=== PATIENT | female | born 1975 | race African-American/Black ===

== ENCOUNTER 2019-09-14 08:43 | Emergency (ER) | payer SELFPAY ==
[~2019-09-14] VITALS: Ht 175.3 cm; Wt 86.3 kg
--- NOTE | 2019-09-14 09:23 | PHYS DOC ---
Past History Past Medical History: Anemia, Anxiety Past Surgical History: Appendectomy Smoking: Cigarettes Alcohol Use: Occasionally Drug Use: None Adult General Chief Complaint Chief Complaint: CHEST PAIN [facility] HPI Patient is a 44-year-old female, smoker, who presents to the emergency department for evaluation. She states that for the past week or so, she has been having some discomfort in her mid chest, neck and back. She states the pain in her chest will come, be very sharp and intense for about a second, and then disappear. She reports pain in her upper neck as well. She states that she did not think much of it initially because she has had neck problems in the past, previously diagnosed on imaging. She denies any numbness or weakness, pleuritic pain, exertional pain, shortness of breath, dizziness or lightheadedness. She has not had any fevers or chills. There are no alleviating or exacerbating factors to her symptoms. However, certain upper body movements seem to worsen her pain. Palpation of the affected area does not seem to affect her symptoms. Review of Systems Review of Systems Constitutional: Denies fever or chills [] Eyes: Denies change in visual acuity, redness, or eye pain [] HENT: Denies nasal congestion or sore throat [] Respiratory: Denies cough or shortness of breath [] Cardiovascular: No additional information not addressed in HPI [] GI: Denies abdominal pain, nausea, vomiting, bloody stools or diarrhea [] : Denies dysuria or hematuria. LMP at the end of July. Reports history of heavy periods. Is slightly late on her menstrual cycle. [] Musculoskeletal: Denies back pain or joint pain [] Integument: Denies rash or skin lesions [] Neurologic: Denies headache, focal weakness or sensory changes [] Endocrine: Denies polyuria or polydipsia [] All other systems were reviewed and found to be within normal limits, except as documented in this note. Allergies Allergies Allergies Coded Allergies Type Severity Reaction Last Updated Verified No Known Drug Allergies 09/14/19 No Physical Exam Physical Exam PHYSICAL EXAM: CONSTITUTIONAL: Well developed, well nourished HEAD: normocephalic, atraumatic EENT: PERRL, EOMI. Conjunctivae normal color, sclerae non-icteric; moist mucous membranes. NECK: Supple, non-tender; no meningismus. LUNGS: Lungs CTA, breathing even and unlabored. Normal air movement. HEART: Regular rate and rhythm, no murmur CHEST: No deformity; non-tender ABDOMEN: The abdomen is soft, and non-tender, no masses or bruits. EXTREM: Normal ROM; no deformity, no calf tenderness. Normal pulses palpable in all extremities. There is no pedal edema. SKIN: No rash; no diaphoresis NEURO: Alert; normal speech and cognition; CN's grossly intact; strength grossly intact without focal deficit. BACK: No CVA TTP. Current Patient Data Vital Signs Vital Signs Date Time Temp Pulse Resp B/P (MAP) Pulse Ox O2 Delivery O2 Flow Rate FiO2 09/14/19 08:50 76 16 134/66 (88) 100 Room Air 09/14/19 08:45 97.7 Lab Results Laboratory Tests Test 09/14/19 09:00 09/14/19 09:40 White Blood Count 6.5 x10^3/uL Red Blood Count 4.37 x10^6/uL Hemoglobin 9.2 g/dL Hematocrit 30.0 % Mean Corpuscular Volume 69 fL Mean Corpuscular Hemoglobin 21 pg Mean Corpuscular Hemoglobin Concent 31 g/dL Red Cell Distribution Width 20.5 % Platelet Count 409 x10^3/uL Neutrophils (%) (Auto) 44 % Lymphocytes (%) (Auto) 42 % Monocytes (%) (Auto) 8 % Eosinophils (%) (Auto) 5 % Basophils (%) (Auto) 1 % Neutrophils # (Auto) 2.9 x10^3uL Lymphocytes # (Auto) 2.8 x10^3/uL Monocytes # (Auto) 0.5 x10^3/uL Eosinophils # (Auto) 0.3 x10^3/uL Basophils # (Auto) 0.1 x10^3/uL Platelet Estimate Pending D-Dimer (Daria) 0.75 mg/L Sodium Level 139 mmol/L Potassium Level 3.7 mmol/L Chloride Level 105 mmol/L Carbon Dioxide Level 26 mmol/L Anion Gap 8 Blood Urea Nitrogen 7 mg/dL Creatinine 0.7 mg/dL Estimated GFR (Cockcroft-Gault) 109.5 BUN/Creatinine Ratio 10 Glucose Level 87 mg/dL Calcium Level 8.3 mg/dL Total Bilirubin 0.3 mg/dL Aspartate Amino Transf (AST/SGOT) 19 U/L Alanine Aminotransferase (ALT/SGPT) 25 U/L Alkaline Phosphatase 56 U/L Troponin I Quantitative < 0.017 ng/mL EY-Mks-E-Type Natriuretic Peptide 48 pg/mL Total Protein 7.3 g/dL Albumin 3.5 g/dL Albumin/Globulin Ratio 0.9 Lipase 125 U/L Bedside Urine HCG, Qualitative hcg negative Current Medications Medications (Trade) Dose Ordered Sig/Zafar Route PRN Reason Start Time Stop Time Status Last Admin Dose Admin Aspirin (Children'S Aspirin) 324 mg 1X ONCE PO 09/14/19 09:30 09/14/19 09:31 DC 09/14/19 09:33 EKG EKG []Normal sinus rhythm with a normal rate, normal axis, normal intervals, there are no acute ischemic ST/T changes. Radiology/Procedures Radiology/Procedures PROCEDURE: CHEST PA & LATERAL EXAM: Chest, 2 views. HISTORY: Chest pain. COMPARISON: None. FINDINGS: 2 views of the chest are obtained. There is no infiltrate, pleural effusion or pneumothorax. The heart is normal in size. IMPRESSION: No acute pulmonary finding. [] PROCEDURE: CT ANGIOGRAPHY CHEST CT Angio chest 09/14/2019 9:56 AM Indication: Chest pain Technique: Multiple contiguous axial images were obtained through the chest after administration of intravenous iodinated contrast. Coronal, sagittal, and 3-D MIP reformations were created. Comparison: Chest radiograph, earlier today Findings: There is no filling defect within central pulmonary arteries or evidence of acute pulmonary embolism. Heart size is normal. No pericardial effusion is appreciated. No pathologically enlarged mediastinal lymph nodes are seen. . The thoracic aorta is grossly normal in course and contour. There is no pneumothorax or pleural effusion. No acute infiltrates are seen. . Multiple thin-walled cysts are seen throughout the bilateral lungs. In the upper lobes areas of cysts cyst formation. A tiny, all thin-walled cyst are slightly more prominent in the lower lobes, particularly on the left. No associated nodular or inflammatory changes identified. Patient reports to be a nonsmoker. There is a there are 2 small 3 mm noncalcified nodules along the major fissure, and small 3 mm noncalcified nodule along the minor fissure on the right. Findings most likely reflect small intrapulmonary lymph nodes, though attention on follow-up studies recommended. Limited visualization of the upper abdomen demonstrates no acute abnormality. No acute osseous abnormalities are appreciated. Impression: 1.No evidence of acute pulmonary embolism 2. Scattered thin-walled pulmonary cysts, slightly more prominent in the lower lobes. In a nonsmoking, female patient, differential considerations would include early changes of lymphangiomyomatosis. is in fact smoking history, centrilobular emphysema should be considered. Consider Follow-up high-resolution chest CT in 6 months to one year. 3. 3, approximately 3 mm pleural-based nodules on the right, which may represent intrapulmonary lymph nodes. Attention on follow-up exam recommended. Course & Med Decision Making Course & Med Decision Making Pertinent Labs and Imaging studies reviewed. (See chart for details) []11:15 AM: The patient's condition remained stable. I discussed test results with the patient, specifically the CT findings and the need for further outpatient follow-up, and return precautions in detail. She'll be given pulmonary follow-up information. Dragon Disclaimer Dragon Disclaimer This electronic medical record was generated, in whole or in part, using a voice recognition dictation system. Departure Departure: Impression: Primary Impression: Atypical chest pain Disposition: 01 HOME/RESIDENCE PRIOR TO ADM Condition: STABLE Patient Instructions: Chest Pain (Nonspecific), Musculoskeletal Pain, Smoking Cessation Additional Instructions: Ibuprofen 400-600 mg every 6 hours may help improve your symptoms. Applying a heating pad to the affected area may help improve your symptoms. Follow-up with Dr. Meraz, pulmonology, call [phone] to schedule an appointment. MARIA ISABEL ROONEY MD Sep 14, 2019 09:22
[2019-09-14] MEDS ORDERED: ASPIRIN 81 MG TAB.CHEW PO ONE (09:30)
[2019-09-14 09:31] LABS: BASO # 0.1 x10^3/uL (0.0-0.2); BASO % 1 % (0-3); EOS # 0.3 x10^3/uL (0.0-0.7); EOS % 5 % (0-3); HEMOGLOBIN 9.2 g/dL (12.0-15.5); LYMPH # 2.8 x10^3/uL (1.0-4.8); LYMPH % 42 % (24-48); MEAN CORPUSCULAR HEMOGLOBIN 21 pg (25-35); MEAN CORPUSCULAR HGB CONC 31 g/dL (31-37); MEAN CORPUSCULAR VOLUME 69 fL (79-100); MONO # 0.5 x10^3/uL (0.0-1.1); MONO % 8 % (0-9); NEUT # 2.9 x10^3uL (1.8-7.7); NEUT % 44 % (31-73); PLATELET COUNT 409 x10^3/uL (140-400); RED BLOOD COUNT 4.37 x10^6/uL (3.50-5.40); RED CELL DISTRIBUTION WIDTH 20.5 % (11.5-14.5); WHITE BLOOD COUNT 6.5 x10^3/uL (4.0-11.0)
--- NOTE | 2019-09-14 09:35 | RAD ---
EXAM: Chest, 2 views. HISTORY: Chest pain. COMPARISON: None. FINDINGS: 2 views of the chest are obtained. There is no infiltrate, pleural effusion or pneumothorax. The heart is normal in size. IMPRESSION: No acute pulmonary finding. Electronically signed by: Estephania White MD (09/14/2019 9:32 AM) [place] [id number]
[2019-09-14 09:45] LABS: ALBUMIN 3.5 g/dL (3.4-5.0); ALBUMIN/GLOBULIN RATIO 0.9 (1.0-1.7); CALCIUM 8.3 mg/dL (8.5-10.1); CREATININE 0.7 mg/dL (0.6-1.0); GFR 109.5; POTASSIUM 3.7 mmol/L (3.5-5.1); TOTAL BILIRUBIN 0.3 mg/dL (0.2-1.0); TOTAL PROTEIN 7.3 g/dL (6.4-8.2)
[2019-09-14 10:04] LABS: MICROCYTOSIS PRESENT; PLT ESTIMATE INCREASED (ADEQUATE)
[2019-09-14 10:06] LABS: ANISOCYTOSIS PRESENT; OVALOCYTES FEW
[2019-09-14 10:07] LABS: SCHISTOCYTES FEW; TARGET CELLS FEW
[2019-09-14 10:09] LABS: TEAR DROP CELLS FEW
[2019-09-14 10:11] LABS: BURR CELLS OCC; HYPOCHROMIA PRESENT
[2019-09-14] MEDS ORDERED: IOHEXOL 350 MG/ML 100 ML VIAL. IV ONE (10:15)
--- NOTE | 2019-09-14 11:05 | RAD ---
CT Angio chest 09/14/2019 9:56 AM Indication: Chest pain Technique: Multiple contiguous axial images were obtained through the chest after administration of intravenous iodinated contrast. Coronal, sagittal, and 3-D MIP reformations were created. Comparison: Chest radiograph, earlier today Findings: There is no filling defect within central pulmonary arteries or evidence of acute pulmonary embolism. Heart size is normal. No pericardial effusion is appreciated. No pathologically enlarged mediastinal lymph nodes are seen. . The thoracic aorta is grossly normal in course and contour. There is no pneumothorax or pleural effusion. No acute infiltrates are seen. . Multiple thin-walled cysts are seen throughout the bilateral lungs. In the upper lobes areas of cysts cyst formation. A tiny, all thin-walled cyst are slightly more prominent in the lower lobes, particularly on the left. No associated nodular or inflammatory changes identified. Patient reports to be a nonsmoker. There is a there are 2 small 3 mm noncalcified nodules along the major fissure, and small 3 mm noncalcified nodule along the minor fissure on the right. Findings most likely reflect small intrapulmonary lymph nodes, though attention on follow-up studies recommended. Limited visualization of the upper abdomen demonstrates no acute abnormality. No acute osseous abnormalities are appreciated. Impression: 1.No evidence of acute pulmonary embolism 2. Scattered thin-walled pulmonary cysts, slightly more prominent in the lower lobes. In a nonsmoking, female patient, differential considerations would include early changes of lymphangiomyomatosis. is in fact smoking history, centrilobular emphysema should be considered. Consider Follow-up high-resolution chest CT in 6 months to one year. 3. 3, approximately 3 mm pleural-based nodules on the right, which may represent intrapulmonary lymph nodes. Attention on follow-up exam recommended. CT DOSING PQRS STATEMENT: One or more of the following individualized dose reduction techniques were utilized for this examination: 1. Automated exposure control 2. Adjustment of the mA and/or kV according to patient size 3. Use of iterative reconstruction technique Electronically signed by: Kee Coyle MD (09/14/2019 11:03 AM) [facility]
[2019-09-14 11:27] VITALS: BP 113/69
--- NOTE | 2019-09-15 06:09 | EKG ---
[address] [address] Test Date: 2019-09-14 Test Time: 09:06:50 Pat Name: RONNY GERMAN Department: Room: Gender: F Analyst Programmer: BEV : 1975 Requested By: MARIA ISABEL ROONEY Order Number: [id number] Reading MD: Measurements Intervals [place] Rate: 71 P: 0 IL: 138 QRS: 22 QRSD: 70 T: 27 QT: 378 QTc: 411 Interpretive Statements SINUS RHYTHM OTHERWISE NORMAL ECG RI6.01 No previous ECG available for comparison
== END 2019-09-14 11:29 | disposition home or self-care (01) ==
LOC: ER 08:43
DX: R07.89 Other chest pain (principal); M54.2 Cervicalgia; M54.6 Pain in thoracic spine; F17.210 Nicotine dependence, cigarettes, uncomplicated; F41.9 Anxiety disorder, unspecified; Z86.2 Personal history of diseases of the blood and blood-forming organs and certain disorders involving the immune mechanism
CPT/HCPCS: 36415; 71046; 71275; 80053; 81025; 83690; 83880; 84484; 85025; 85379; 93005; 99285; Q9967

== ENCOUNTER 2020-11-26 12:22 | Emergency (ER) | payer OTHER ==
[~2020-11-26] VITALS: Ht 175.3 cm; Wt 82.4 kg
--- NOTE | 2020-11-26 12:42 | PHYS DOC ---
Past History Past Medical History: Anemia, Anxiety Past Surgical History: Appendectomy Smoking: Cigarettes Alcohol Use: Occasionally Drug Use: None Adult General Chief Complaint Chief Complaint: ANKLE PROBLEM HPI HPI Patient is a 45-year-old female who presents to the ED today complaining of 10 out of 10 left lateral ankle pain, symptoms began last night after injury at work. Patient states her left ankle got caught between a pallet and nail. She works for [employer] since. States pain is worse on weightbearing. Denies anything specifically relieving the pain. Describes the pain as sharp and intermittent. Review of Systems Review of Systems Constitutional: Denies fever or chills []] Musculoskeletal: Reports left ankle pain. Denies back pain Integument: Denies rash or skin lesions [] Neurologic: Denies headache, focal weakness or sensory changes [] All other systems were reviewed and found to be within normal limits, except as documented in this note. Allergies Allergies Allergies Coded Allergies Type Severity Reaction Last Updated Verified cyclobenzaprine Allergy Unknown 11/26/20 Yes Physical Exam Physical Exam Constitutional: Well developed, well nourished, no acute distress, non-toxic appearance. [] Skin: Warm, dry, no erythema, no rash. [] Back: No tenderness, no CVA tenderness. [] Extremities: Left ankle with no obvious deformity. Trace amount soft tissue swelling noted on the left lateral ankle. Full range of motion to the left ankle, foot and toes. +2 left pedal pulse. Cap refill less than 2 seconds in toes. Neurologic: Alert and oriented X 3, normal motor function, normal sensory function, no focal deficits noted. [] Psychologic: Affect normal, judgement normal, mood normal. [] EKG EKG [] Radiology/Procedures Radiology/Procedures []PROCEDURE: ANKLE LEFT 3V XR EXAM OF ANKLE_LEFT 3V History: Reason: Injury to left ankle, pain / Spl. Instructions: / History: Technique: 3 views left ankle. Comparison: None. Findings: Normal alignment. No fracture. Symmetric ankle mortise. Soft tissues unr emarkable. Tiny plantar calcaneal spur. Impression: 1. No acute osseous abnormality. Electronically signed by: Humble Nunez DO (11/26/2020 12:54 PM) [facility] DICTATED AND SIGNED BY: HUMBLE NUNEZ DO DATE: 11/26/20 [id number] CC: EMERGENCY,DEPARTMENT; SUSY DAILEY MD; DIRK DELANEY IDA ~MTH0 0 Heart Score Risk Factors: Risk Factors: DM, Current or recent (<one month) smoker, HTN, HLP, family history of CAD, obesity. Risk Scores: Risk Factors: DM, Current or recent (<one month) smoker, HTN, HLP, family history of CAD, obesity. Course & Med Decision Making Course & Med Decision Making Pertinent Labs and Imaging studies reviewed. (See chart for details) This is a 45-year-old female patient presented to the ED today complaining of left ankle pain, symptoms began yesterday after work injury. Left ankle x-rays interpreted by radiologist were negative for any acute findings. Geremias bandage applied to the left ankle by the ED nurse, neurovascular exam is intact. Ice elevation encouraged. OTC pain relievers. Follow-up with orthopedic doctor as needed Dragon Disclaimer Dragon Disclaimer This electronic medical record was generated, in whole or in part, using a voice recognition dictation system. Departure Departure: Impression: Primary Impression: Left ankle sprain Disposition: 01 DC HOME SELF CARE/HOMELESS Condition: STABLE Referrals: PCPGENA (PCP) CT TARANGO MD follow up in 1-2 weeks Patient Instructions: Ankle Sprain, Hpre-[id number] Additional Instructions: You were seen for left ankle injury, your left ankle x-rays are negative for any acute findings. Wear the Geremias bandage provided as tolerated. Try to ice and elevate the extremity. You can take [id number] pain relievers as needed. Follow-up with the provided orthopedic doctor in 1 week if pain persist Problem Qualifiers Primary Impression: Left ankle sprain Encounter type: initial encounter Involved ligament of ankle: unspecified ligament Qualified Codes: S93.402A - Sprain of unspecified ligament of left ankle, initial encounter DIRK DELANEY IDA Nov 26, 2020 12:42
--- NOTE | 2020-11-26 12:57 | RAD ---
XR EXAM OF ANKLE_LEFT 3V History: Reason: Injury to left ankle, pain / Spl. Instructions: / History: Technique: 3 views left ankle. Comparison: None. Findings: Normal alignment. No fracture. Symmetric ankle mortise. Soft tissues unremarkable. Tiny plantar calca bryant spur. Impression: 1. No acute osseous abnormality. Electronically signed by: Humble Nunez DO (11/26/2020 12:54 PM) [facility]
== END 2020-11-26 13:20 | disposition home or self-care (01) ==
LOC: ER 12:22
DX: S93.402A Sprain of unspecified ligament of left ankle, initial encounter (principal); W23.0XXA Caught, crushed, jammed, or pinched between moving objects, initial encounter; Y93.89 Activity, other specified; Y92.89 Other specified places as the place of occurrence of the external cause; Y99.8 Other external cause status
CPT/HCPCS: 73610; 99283-25

== ENCOUNTER 2021-01-27 15:15 | Emergency (ER) | payer OTHER ==
[~2021-01-27] VITALS: Ht 175.3 cm; Wt 82.4 kg
[2021-01-27 15:28] VITALS: BP 125/72
[2021-01-27] MEDS ORDERED: IBUP800T19 PO (16:27)
--- NOTE | 2021-01-27 16:28 | PHYS DOC ---
Past History Past Medical History: No Pertinent History, Anemia, Anxiety Past Surgical History: Appendectomy Smoking: Cigarettes Alcohol Use: None Drug Use: None General Adult EDM: Chief Complaint: LOWEREXTREMITY INJURY HPI: HPI: Patient is a 45-year-old female presents with left ankle pain after an injury at work. Patient's been following work comp for chronic pain. Patient states "the pain was just worse today". Patient states that she was scheduled to have an MRI completed through work comp and just waiting on appointment. Patient denies health history. Denies taking anything at home for the pain today. Patient normally takes ibuprofen and wears a boot. Review of Systems: Review of Systems: Constitutional: Denies fever or chills Eyes: Denies change in visual acuity HENT: Denies nasal congestion or sore throat Respiratory: Denies cough or shortness of breath Cardiovascular: Denies chest pain or edema GI: Denies abdominal pain, nausea, vomiting, bloody stools or diarrhea : Denies dysuria Musculoskeletal: Reports back pain and left foot pain Integument: Denies rash Neurologic: Denies headache, focal weakness or sensory changes Endocrine: Denies polyuria or polydipsia Lymphatic: Denies swollen glands Psychiatric: Denies depression or anxiety Allergies: Allergies: Allergies Coded Allergies Type Severity Reaction Last Updated Verified cyclobenzaprine Allergy Unknown 11/26/20 Yes Physical Exam: PE: Constitutional: Well developed, well nourished, no acute distress, non-toxic appearance. [] HENT: Normocephalic, atraumatic, bilateral external ears normal, oropharynx moist, no oral exudates, nose normal. [] Eyes: PERRLA, EOMI, conjunctiva normal, no discharge. [] Neck: Normal range of motion, no tenderness, supple, no stridor. [] Cardiovascular:Heart rate regular rhythm, no murmur [] Lungs & Thorax: Bilateral breath sounds clear to auscultation [] Abdomen: Bowel sounds normal, soft, no tenderness, no masses, no pulsatile masses. [] Skin: Warm, dry, no erythema, no rash. [] Back: No tenderness, no CVA tenderness. [] Extremities: Left foot tenderness, no cyanosis, no clubbing, ROM intact, no edema. [] Neurologic: Alert and oriented X 3, normal motor function, normal sensory function, no focal deficits noted. [] Psychologic: Affect normal, judgement normal, mood normal. [] Current Patient Data: Vital Signs: Vital Signs Date Time Temp Pulse Resp B/P (MAP) Pulse Ox O2 Delivery O2 Flow Rate FiO2 01/27/21 15:28 99.2 81 18 125/72 (89) 99 EKG: EKG: [] Radiology/Procedures: Radiology/Procedures: [] Heart Score: C/O Chest Pain: No Risk Factors: Risk Factors: DM, Current or recent (<one month) smoker, HTN, HLP, family history of CAD, obesity. Risk Scores: Score 0 - 3: 2.5% MACE over next 6 weeks - Discharge Home Score 4 - 6: 20.3% MACE over next 6 weeks - Admit for Clinical Observation Score 7 - 10: 72.7% MACE over next 6 weeks - Early Invasive Strategies Course & Med Decision Making: Course & Med Decision Making Pertinent Labs and Imaging studies reviewed. (See chart for details) [] Patient is being seen for chronic left foot pain. Patient is currently being treated with her comp and waiting for an MRI. Patient states that x-ray of ankle was negative for any acute fractures. Patient states "the pain was little bit worse today". Patient takes ibuprofen and wears boot at home for discomfort. Patient given IM Toradol injection. Patient sent home with prescription for 600 mg ibuprofen. Patient reports that she is out of ibuprofen at home. Patient denies any new injury. Patient states that she is okay with this plan and thankful for treatment. Dragon Disclaimer: Dragon Disclaimer: This electronic medical record was generated, in whole or in part, using a voice recognition dictation system. Departure Departure: Impression: Primary Impression: Left ankle pain Qualified Codes: M25.572 - Pain in left ankle and joints of left foot; G89.29 - Other chronic pain Disposition: 01 HOME / SELF CARE / HOMELESS Referrals: SUSY DAILEY MD (PCP) Patient Instructions: Ankle Pain Additional Instructions: You are seen in the emergency room for left ankle pain. You denied any new injury to the area. Toradol injection was given and obesity you home with prescription for 600 mg ibuprofen. Please return emergency room with worsening symptoms or concerns. EMERGENCY DEPARTMENT GENERAL DISCHARGE INSTRUCTIONS Thank you for coming to [facility] (ED) today and trusting us with you care. We trust that you had a positivie experience in our Emergency Department. If you wish to speak to the department management, you may call the director at [phone]. YOUR FOLLOW UP INSTRUCTIONS ARE FOLLOWS: 1. Do you have a private Doctor? If you do not have a private doctor, please ask for a resource list of physicians or clinics that may be able to assist you with follow up care. 2. The Emergency Physician has interpreted your x-rays. The X-Ray specialist will also review them. If there is a change in the findings, you will be notified in 48 hours when at all possible. 3. A lab test or culture has been done, your results will be reviewed and you will be notified if you need a change in treatment. ADDITIONAL INSTRUCTIONS AND INFORMATION: 1. Your care today has been supervised by a physician who is specially trained in emergency care. Many problems require more than one evaluation for a complete diagnosis and treatment. We recommend that you schedule your follow up appointment as recommended to ensure complete treatment of you illness or injury. If you are unable to obtain follow up care and continue to have a problem, or if your condition worsens, we recommend that you return to the ED. 2. We are not able to safely determine your condition over the phone nor are we able to give sound medical advice over the phone. For these safety reasons, if you call for medical advice we will ask you to come to the ED for further evaluation. 3. If you have any questions regarding these discharge instructions please call the ED at [phone]. SAFETY INFORMATION: In the interest of safety, wellness, and injury prevention; we encourage you to wear your sealbelt, if you smoke; quite smoking, and we encourage family to use a protective helmet for bicycling and other sporting events that present an increased risk for head injury. IF YOUR SYMPTOMS WORSEN OR NEW SYMPTOMS DEVELOP, OR YOU HAVE CONCERNS ABOUT YOUR CONDITION; OR IF YOUR CONDITION WORSENS WHILE YOU ARE WAITING FOR YOUR FOLLOW UP APPOINTMENT; EITHER CONTACT YOUR PRIMARY CARE DOCTOR, THE PHYSICIAN WHOSE NAME AND NUMBER YOU WERE GIVEN, OR RETURN TO THE ED IMMEDIATELY. Scripts Ibuprofen (IBUPROFEN) 200 Mg Tablet 600 MG PO QIDPRN PRN for PAIN, #15 TAB Prov: ARTIE BOWSER APRN 01/27/21 ARTIE BOWSER APRN Jan 27, 2021 16:28
[2021-01-27] MEDS ORDERED: KETOROLAC 15 MG/ML VIAL. IM ONE (16:30)
[2021-01-27] MEDS ORDERED: IBUP-1673 PO (16:32)
== END 2021-01-27 16:37 | disposition home or self-care (01) ==
LOC: ER 15:15
DX: M25.572 Pain in left ankle and joints of left foot (principal); G89.29 Other chronic pain; F17.210 Nicotine dependence, cigarettes, uncomplicated; Z88.1 Allergy status to other antibiotic agents
CPT/HCPCS: 96372; 99283

== ENCOUNTER 2021-03-28 14:40 | Emergency (ER) | payer OTHER ==
[~2021-03-28] VITALS: Ht 175.3 cm; Wt 84.6 kg
[~2021-03-28 14:40] MED LIST: IBUP-1673 PO; IBUP800T19 PO
[2021-03-28] MEDS ORDERED: KETOROLAC 60 MG/2 ML VIAL. IM ONE (15:15)
--- NOTE | 2021-03-28 15:33 | PHYS DOC ---
Past History Past Medical History: No Pertinent History, Anemia, Anxiety (AVERY ABDUL APRN) Past Surgical History: Appendectomy (AVERY ABDUL APRN) Smoking: Cigarettes Alcohol Use: None Drug Use: None (AVERY ABDUL APRN) Adult General Chief Complaint Chief Complaint: ANKLE PROBLEM HPI HPI Patient is a 46-year-old female who presents to the emergency department with a chief complaint of Achilles tendinitis pain today. 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 Patient reports she has been following up with her work comp physician and personalization specialist as directed, reports she was wearing a cam boot, had an MRI to evaluate her left Achilles tendon on January 28, follow-up appointment was February 27 with her orthopedist who told her she no longer needed her cam boot and recommended a compression garment and return to work. Patient reports her next appointment with her personalization specialist is April 10. Patient reports that the orthopedic surgeon did not really look at her or examine her Achilles on the left. Patient states that while she was at work today her Achilles tendon started aching again and rated a 10 out of 10 pain. Patient states since he has been here in the emergency department her pain is decreased down to an 8 out of 10. Patient reports her last menstrual cycle was on March 12 with normal duration of flow. Patient is requesting a work excuse. Patient reports allergy to Flexeril. Denies taking home prescription medications, takes [id number] Tylenol and/or Motrin for aches and pains. States that she took 2 500 mg Tylenols at 11 AM today. Patient denies any other physical complaints or physical concerns. (AVERY ABDUL APRN) Review of Systems Review of Systems 14 body systems of review of systems have been reviewed. See HPI for pertinent positives and negative responses, otherwise all other systems are negative, nonpertinent or noncontributory. (AVERY ABDUL APRN) Current Medications Current Medications Current Medications Medications (Trade) Dose Ordered Sig/Zafar Start Time Stop Time Status Last Admin Dose Admin Ketorolac Tromethamine (Toradol Im) 60 mg 1X ONCE 03/28/21 15:15 03/28/21 15:16 DC 03/28/21 15:15 60 MG (AVERY ABDUL APRN) Allergies Allergies Allergies Coded Allergies Type Severity Reaction Last Updated Verified cyclobenzaprine Allergy Unknown Swelling 03/28/21 Yes (AVERY ABDUL APRN) Physical Exam Physical Exam Constitutional: Well developed, well nourished, no acute distress, non-toxic appearance. 46-year-old female no apparent distress. HENT: Normocephalic, atraumatic. Eyes: Conjunctive normal, no discharge. Neck: Normal range of motion. Cardiovascular: No cyanosis appreciated, distal cap refill less than 2 seconds. Lungs & Thorax: Patient is in no respiratory distress, no audible adventitious lung sounds appreciated. Skin: Warm, dry, no erythema, no rash. Extremities: No tenderness, no cyanosis, no clubbing, ROM intact, no edema. Full AROM/PROM of left ankle. Negative Zimmer's test. There is no erythema or swelling appreciated to the Achilles tendon.there is pain and tenderness along Achilles tendon with thickening at insertion to calcaneus, and pain on forced dorsiflexion. Neurologic: Alert and oriented X 3, normal motor function, normal sensory function, no focal deficits noted. Psychologic: Affect normal, judgement normal, mood normal. (AVERY ABDUL APRN) Current Patient Data Vital Signs Vital Signs Date Time Temp Pulse Resp B/P (MAP) Pulse Ox O2 Delivery O2 Flow Rate FiO2 03/28/21 14:40 97.7 79 18 142/46 (78) 100 Room Air (AVERY ABDUL APRN) EKG EKG [] (AVERY ABDUL APRN) Radiology/Procedures Radiology/Procedures [] (AVERY ABDLU APRN) Heart Score C/O Chest Pain: No Risk Factors: Risk Factors: DM, Current or recent (<one month) smoker, HTN, HLP, family history of CAD, obesity. Risk Scores: Risk Factors: DM, Current or recent (<one month) smoker, HTN, HLP, family histo ry of CAD, obesity. (AVERY ABDUL APRN) Course & Med Decision Making Course & Med Decision Making Pertinent Labs and Imaging studies reviewed. (See chart for details) 46-year-old female, vital signs reviewed, presents emergency department complaining of Achilles tendinitis pain that started today while she was at work. Patient denied any sudden snap or knifelike pain to the posterior calf, there is no ecchymosis or swelling or palpable defect of the posterior tendon, there is no decreased plantarflexion strength. The patient's physical examination was consistent with Achilles tendinitis. We will give 60 mg IM Toradol for complaint of 8 out of 10 pain. After period of time, the patient reevaluated, patient states that her pain is much better now stating that it is about a 3 or 4. Discussed with patient RICE therapy, NSAID therapy, continue with recommendations by her personalization specialist and work comp physicians. Patient gave verbal understanding of discharge home instructions, RICE therapy, home NSAID use, follow-up with work comp and personalization specialist, return to ER precautions or concerns, patient was discharged home without incident. (AVERY ABDUL APRN) Dragon Disclaimer Dragon Disclaimer This electronic medical record was generated, in whole or in part, using a voice recognition dictation system. (AVERY ABDUL APRN) Departure Departure: Impression: Primary Impression: Achilles tendon pain Disposition: HOME / SELF CARE / HOMELESS Condition: GOOD Referrals: SUSY DAILEY MD (PCP) Patient Instructions: RICE - Routine Care for Injuries Additional Instructions: You were seen today in the emergency department for pain to your Achilles tendon from an old crush injury that you are following up with an personalization specialist and your work comp physician. You were given 60 mg of intramuscular Toradol today for your pain. A Geremias wrap was applied for comfort and stability. Please use RICE therapy as we discussed. Keep your appointments with your work comp and personalization specialist coming up soon. Please return to the emergency department for worsening symptoms or other concerns, I am giving you a work excuse as you requested. EMERGENCY DEPARTMENT GENERAL DISCHARGE INSTRUCTIONS Thank you for coming to [facility] (ED) today and trusting us with you care. We trust that you had a positivie experience in our Emergency Department. If you wish to speak to the department management, you may call the director at [phone]. YOUR FOLLOW UP INSTRUCTIONS ARE FOLLOWS: 1. Do you have a private Doctor? If you do not have a private doctor, please ask for a resource list of physicians or clinics that may be able to assist you with follow up care. 2. The Emergency Physician has interpreted your x-rays. The X-Ray specialist will also review them. If there is a change in the findings, you will be notified in 48 hours when at all possible. 3. A lab test or culture has been done, your results will be reviewed and you will be notified if you need a change in treatment. ADDITIONAL INSTRUCTIONS AND INFORMATION: 1. Your care today has been supervised by a physician who is specially trained in emergency care. Many problems require more than one evaluation for a complete diagnosis and treatment. We recommend that you schedule your follow up appointment as recommended to ensure complete treatment of you illness or injury. If you are unable to obtain follow up care and continue to have a problem, or if your condition worsens, we recommend that you return to the ED. 2. We are not able to safely determine your condition over the phone nor are we able to give sound medical advice over the phone. For these safety reasons, if you call for medical advice we will ask you to come to the ED for further evaluation. 3. If you have any questions regarding these discharge instructions please call the ED at [phone]. SAFETY INFORMATION: In the interest of safety, wellness, and injury prevention; we encourage you to wear your sealbelt, if you smoke; quite smoking, and we encourage family to use a protective helmet for bicycling and other sporting events that present an increased risk for head injury. IF YOUR SYMPTOMS WORSEN OR NEW SYMPTOMS DEVELOP, OR YOU HAVE CONCERNS ABOUT YOUR CONDITION; OR IF YOUR CONDITION WORSENS WHILE YOU ARE WAITING FOR YOUR FOLLOW UP APPOINTMENT; EITHER CONTACT YOUR PRIMARY CARE DOCTOR, THE PHYSICIAN WHOSE NAME AND NUMBER YOU WERE GIVEN, OR RETURN TO THE ED IMMEDIATELY. Attending Signature Attending Signature I have reviewed the PA/GLUER MACHINE OPERATOR's note and plan of care. I was available for consulta tion as needed during the patient's visit in the emergency department. I agree with the clinical impression, plan, and disposition. (AVERY HASSAN DO) AVERY ABDUL APRN Mar 28, 2021 15:33 AVERY HASSAN DO Mar 28, 2021 19:36
[2021-03-28 15:41] VITALS: BP 114/70
== END 2021-03-28 15:41 | disposition home or self-care (01) ==
LOC: ER 14:40
DX: M76.62 Achilles tendinitis, left leg (principal); F41.9 Anxiety disorder, unspecified; F17.210 Nicotine dependence, cigarettes, uncomplicated; Z86.2 Personal history of diseases of the blood and blood-forming organs and certain disorders involving the immune mechanism; Z88.8 Allergy status to other drugs, medicaments and biological substances
CPT/HCPCS: 96372; 99283; J1885

== ENCOUNTER 2021-04-30 10:45 | Emergency (ER) | payer OTHER ==
[~2021-04-30] VITALS: Ht 175.3 cm; Wt 84.6 kg
[2021-04-30 11:00] VITALS: BP 129/69
[2021-04-30] MEDS ORDERED: KETOROLAC 60 MG/2 ML VIAL. IM ONE (11:15)
--- NOTE | 2021-04-30 11:21 | PHYS DOC ---
Past History Past Medical History: No Pertinent History, Anemia, Anxiety Past Surgical History: Appendectomy Smoking: Cigarettes Alcohol Use: None Drug Use: None General Adult EDM: Chief Complaint: PAIN CONTROL HPI: HPI: 46-year-old female presents with left ankle pain. Patient has a Worker's Comp. injury from a couple of months ago that accept on occasion. For the last 2 days she has had increased stiffness and pain. It will sometimes spasm in her Achilles region and make her feel like she is in a fall. She denies any new falls or injuries. She is requesting a Toradol shot since her primary physician is closed today. She has no other complaints at this time. Review of Systems: Review of Systems: Constitutional: Denies fever or chills Eyes: Denies change in visual acuity HENT: Denies nasal congestion or sore throat Respiratory: Denies cough or shortness of breath Cardiovascular: Denies chest pain or edema GI: Denies abdominal pain, nausea, vomiting, bloody stools or diarrhea : Denies dysuria Musculoskeletal: Left ankle pain Integument: Denies rash Neurologic: Denies headache, focal weakness or sensory changes Endocrine: Denies polyuria or polydipsia Lymphatic: Denies swollen glands Psychiatric: Denies depression or anxiety Current Medications: Current Meds: Current Medications Medications (Trade) Dose Ordered Sig/Zafar Start Time Stop Time Status Last Admin Dose Admin Ketorolac Tromethamine (Toradol Im) 60 mg 1X ONCE 04/30/21 11:15 04/30/21 11:16 DC Allergies: Allergies: Allergies Coded Allergies Type Severity Reaction Last Updated Verified cyclobenzaprine Allergy Unknown Swelling 03/28/21 Yes Physical Exam: PE: Constitutional: Well developed, well nourished, no acute distress, non-toxic appearance. [] HENT: Normocephalic, atraumatic, bilateral external ears normal, oropharynx moist, no oral exudates, nose normal. [] Eyes: PERRLA, EOMI, conjunctiva normal, no discharge. [] Neck: Normal range of motion, no tenderness, supple, no stridor. [] Cardiovascular:Heart rate regular rhythm, no murmur [] Lungs & Thorax: Bilateral breath sounds clear to auscultation [] Abdomen: Bowel sounds normal, soft, no tenderness, no masses, no pulsatile masses. [] Skin: Warm, dry, no erythema, no rash. [] Back: No tenderness, no CVA tenderness. [] Extremities: Left ankle in walking boot. No obvious deformity. [] Neurologic: Alert and oriented X 3, normal motor function, normal sensory function, no focal deficits noted. [] Psychologic: Affect normal, judgement normal, mood normal. [] Current Patient Data: Vital Signs: Vital Signs Date Time Temp Pulse Resp B/P (MAP) Pulse Ox O2 Delivery O2 Flow Rate FiO2 04/30/21 11:00 98.2 89 16 129/69 100 Room Air EKG: EKG: [] Radiology/Procedures: Radiology/Procedures: [] Heart Score: C/O Chest Pain: N/A Risk Factors: Risk Factors: DM, Current or recent (<one month) smoker, HTN, HLP, family history of CAD, obesity. Risk Scores: Score 0 - 3: 2.5% MACE over next 6 weeks - Discharge Home Score 4 - 6: 20.3% MACE over next 6 weeks - Admit for Clinical Observation Score 7 - 10: 72.7% MACE over next 6 weeks - Early Invasive Strategies Course & Med Decision Making: Course & Med Decision Making Pertinent Labs and Imaging studies reviewed. (See chart for details) We have given the patient a Toradol shot and a note for work. She is stable for discharge at this time. [] Dragon Disclaimer: Jerilyn Disclaimer: This electronic medical record was generated, in whole or in part, using a voice recognition dictation system. Departure Departure: Impression: Primary Impression: Achilles tendon pain Disposition: HOME / SELF CARE / HOMELESS Condition: STABLE Referrals: SUSY DAILEY MD (PCP) Patient Instructions: Ankle Pain JUSTO MERCER DO Apr 30, 2021 11:21
== END 2021-04-30 11:29 | disposition home or self-care (01) ==
LOC: ER 10:45
DX: M76.62 Achilles tendinitis, left leg (principal); F41.9 Anxiety disorder, unspecified; F17.210 Nicotine dependence, cigarettes, uncomplicated; Z86.2 Personal history of diseases of the blood and blood-forming organs and certain disorders involving the immune mechanism; Z88.8 Allergy status to other drugs, medicaments and biological substances
CPT/HCPCS: 96372; 99283; J1885

== ENCOUNTER 2021-06-12 11:50 | Emergency (ER) | payer OTHER ==
[~2021-06-12] VITALS: Ht 175.3 cm; Wt 84.6 kg
[2021-06-12 12:29] VITALS: BP 138/79
== END 2021-06-12 13:50 | disposition left against medical advice (07) ==
LOC: ER 11:50
DX: M25.572 Pain in left ankle and joints of left foot (principal); Z53.21 Procedure and treatment not carried out due to patient leaving prior to being seen by health care provider

== ENCOUNTER 2021-12-01 18:11 | Emergency (ER) | payer OTHER ==
[~2021-12-01] VITALS: Ht 175.3 cm; Wt 84.6 kg
--- NOTE | 2021-12-01 18:35 | PHYS DOC ---
Past History Past Medical History: No Pertinent History, Anemia, Anxiety Past Surgical History: Appendectomy Smoking: Cigarettes Alcohol Use: None Drug Use: None General Adult HPI: HPI: ".. I ve been on a peroid since . It will not stop... " " I ve been anemic before.. and I take Iron .. I evern had to have Iron transfusion before... I have not been able to get in and see my doctor yet..." Patient is a 46 year old female who presents with vaginal bleeding and anemia. Pt. states bleeding is as much as peroid. Pt. has hx of chlamydia when she was a teenager. Has had 2 lifetime sex partners. Patient does have a history of prior episodes of dysfunctional uterine bleeding, anemia and anxiety. Patien t had abdomen surgeries of appendectomy. No recent travel. No sick ill contacts. No use immunosuppression. Patient has not gotten COVID vaccination, flu vaccination, Pneumovax,. Patient did get the COVID infection and 2020. Pt. follows with Dr. Brothers. Review of Systems: Review of Systems: Constitutional: Denies fever or chills Eyes: Denies change in visual acuity HENT: Denies nasal congestion or sore throat Respiratory: Denies cough or shortness of breath Cardiovascular: Denies chest pain or edema GI: Denies abdominal pain, nausea, vomiting, bloody stools or diarrhea. Complains of dysfunctional uterine bleeding : Denies dysuria Musculoskeletal: Denies back pain or joint pain Integument: Denies rash Neurologic: Denies headache, focal weakness or sensory changes Endocrine: Denies polyuria or polydipsia Lymphatic: Denies swollen glands Psychiatric: Denies depression or anxiety Family History: Family History: Noncontributory Current Medications: Current Meds: See nursing for home meds Allergies: Allergies: Allergies Coded Allergies Type Severity Reaction Last Updated Verified cyclobenzaprine Allergy Unknown Swelling 03/28/21 Yes Physical Exam: PE: Constitutional: Well developed, well nourished, no acute distress, non-toxic appearance. [] HENT: Normocephalic, atraumatic, bilateral external ears normal, oropharynx moist, no oral exudates, nose normal. [] Eyes: PERRLA, EOMI, conjunctiva pale, no discharge. [] Neck: Normal range of motion, no tenderness, supple, no stridor. [] Cardiovascular:Heart rate regular rhythm, no murmur [] Lungs & Thorax: Bilateral breath sounds clear to auscultation [] Abdomen: Bowel sounds normal, soft, no tenderness, no masses, no pulsatile masses. [] No gross cervical lesion appreciated but did have active bleeding. Os appear to be closed. Skin: Warm, dry, no erythema, no rash. Pale. Back: No tenderness, no CVA tenderness. [] Extremities: No tenderness, no cyanosis, no clubbing, ROM intact, no edema. [] Neurologic: Alert and oriented X 3, normal motor function, normal sensory function, no focal deficits noted. [] Psychologic: Affect anxious, judgement normal, mood normal. [] EKG: EKG: [] Radiology/Procedures: Radiology/Procedures: [][place] [address] IMAGING REPORT Signed PATIENT: RONNY GERMAN ACCOUNT: [id number] : 1975 LOCATION: ER AGE: 46 SEX: F EXAM STATUS: REG ER ORD. PHYSICIAN: HADLEY BUENO MD REASON: dysfunctional bleeding - Request Dr. Nunez. PROCEDURE: US PELVIS W/TV EXAM: ULTRASOUND PELVIS INDICATION: dysfunctional bleeding. Last menstrual period was 11/06/2021. COMPARISON: None available. TECHNIQUE: Transvaginal sonography was performed. FINDINGS: The uterus measures 11.0 x 7.5 x 6.9 cm. The endometrium is complex in echotexture and measures 1.5 cm. There is no focal myometrial abnormality The right ovary was not visualized. The left ovary measures 2.9 x 2.3 x 1.9 cm. Normal vascularity. There is no free fluid. IMPRESSION: 1. Thickened endometrium with complex echotexture, within normal limits for a premenopausal patient. Correlate with stage of patient's cycle. 2. Physiologic appearance of the left ovary. Right ovary not visualized. Electronically signed by: Sunita Morel MD (12/02/2021 1:50 AM) [facility] DICTATED AND SIGNED BY: SUNITA MOREL MD DATE: 12/02/21 014 CC: HADLEY BUENO MD; SUSY BROTHERS MD ~MTH0 0 Heart Score: C/O Chest Pain: N/A Risk Factors: Risk Factors: DM, Current or recent (<one month) smoker, HTN, HLP, family history of CAD, obesity. Risk Scores: Score 0 - 3: 2.5% MACE over next 6 weeks - Discharge Home Score 4 - 6: 20.3% MACE over next 6 weeks - Admit for Clinical Observation Score 7 - 10: 72.7% MACE over next 6 weeks - Early Invasive Strategies Course & Med Decision Making: Course & Med Decision Making Pertinent Labs and Imaging studies reviewed. (See chart for details) Patient follow-up with her TELEPHONE OPERATOR and primary. Consider course of control. Discussed case with Dr. Nunez. Advised US may be helpful. Follow up with Obgyn. If unable to get in her TELEPHONE OPERATOR- follow with Dr. Nunez. [phone], Pt. to double her supplemental iron intake. Pt. to take Premarin 10 mg day x 7 days. Rx written for 14 Tablets. Transfuse two units of PRBC Impression: 1. Anemia Hgb 5.7 2. Microcytic hypochromic indices MCV 65 MCH 20 3. Dysfunctional uterine bleeding [] Dragon Disclaimer: Dragon Disclaimer: This electronic medical record was generated, in whole or in part, using a voice recognition dictation system. Departure Departure: Referrals: SUSY BROTHERS MD (PCP) Scripts Medroxyprogesterone Acetate (PROVERA) 10 Mg Tablet 20 MG PO DAILY for dysfunctional uterine bleeding for 7 Days, #14 TAB Prov: HADLEY BUENO MD 12/01/21 Dragon Disclaimer This chart was dictated in whole or in part using Voice Recognition software in a busy, high-work load, and often noisy Emergency Department environment. It may contain unintended and wholly unrecognized errors or omissions. HADLEY BUENO MD Dec 01, 2021 18:35
[2021-12-01] MEDS ORDERED: IV RINGERS SOLUTION,LACTATED 1,000 ML IV SCH (18:45)
[2021-12-01 19:43] LABS: BASO # 0.1 x10^3/uL (0.0-0.2); BASO % 2 % (0-3); EOS # 0.2 x10^3/uL (0.0-0.7); EOS % 4 % (0-3); HEMATOCRIT 18.7 % (36.0-47.0); LYMPH # 1.8 x10^3/uL (1.0-4.8); LYMPH % 37 % (24-48); MEAN CORPUSCULAR HEMOGLOBIN 20 pg (25-35); MEAN CORPUSCULAR HGB CONC 30 g/dL (31-37); MEAN CORPUSCULAR VOLUME 65 fL (79-100); MONO # 0.4 x10^3/uL (0.0-1.1); MONO % 8 % (0-9); NEUT # 2.3 x10^3uL (1.8-7.7); NEUT % 49 % (31-73); PLATELET COUNT 430 x10^3/uL (140-400); RED BLOOD COUNT 2.87 x10^6/uL (3.50-5.40); RED CELL DISTRIBUTION WIDTH 20.7 % (11.5-14.5); WHITE BLOOD COUNT 4.8 x10^3/uL (4.0-11.0)
[2021-12-01 19:49] LABS: HEMOGLOBIN 5.7 g/dL (12.0-15.5)
[2021-12-01 19:49] LABS: CALCIUM 8.1 mg/dL (8.5-10.1); CREATININE 0.6 mg/dL (0.6-1.0); GFR 129.7
[2021-12-01 19:50] LABS: BARBITURATES NEG (NEG); BENZODIAZEPINES NEG (NEG); CANNABINOIDS NEG (NEG); COCAINE NEG (NEG); METHADONE NEG (NEG); OPIATES NEG (NEG); PHENCYCLIDINE NEG (NEG)
[2021-12-01 19:54] LABS: AMPHETAMINE/METHAMPHETAMINE NEG (NEG)
[2021-12-01 19:55] LABS: ALBUMIN 3.5 g/dL (3.4-5.0); DIRECT BILIRUBIN 0.1 mg/dL (0.0-0.2); TOTAL BILIRUBIN 0.2 mg/dL (0.2-1.0); TOTAL PROTEIN 6.8 g/dL (6.4-8.2)
[2021-12-01] MEDS: ACETAMINOPHEN 500 MG TABLET PO ONE ×2 (20:00→22:25)
[2021-12-01] MEDS: diphenhydrAMINE 50 MG/ML VIAL IVP ONE ×2 (20:00→22:25)
[2021-12-01] MEDS ORDERED: ESTROGENS, CONJUGATED 25 MG VIAL IV ONE (20:00)
[2021-12-01 20:03] LABS: BACTERIA,URINE 0 /HPF (0-FEW); BILIRUBIN,URINE NEG (NEG); CLARITY,URINE CLEAR; COLOR,URINE YELLOW; GLUCOSE,URINE NEG (NEG); NITRITE,URINE NEG (NEG); RBC,URINE RARE /HPF (0-2); SQUAMOUS EPITHELIAL CELL,UR OCC /LPF; UROBILINOGEN,URINE 0.2 mg/dL (0.2 mg/dL); WBC,URINE 0 /HPF (0-4)
[2021-12-01 20:20] LABS: HYPOCHROMIA MARKED; PLT ESTIMATE ADEQUATE (ADEQUATE)
[2021-12-01 20:21] LABS: ANISOCYTOSIS MOD; MICROCYTOSIS MARKED
[2021-12-01] MEDS ORDERED: MEDR10TA PO (22:18)
[2021-12-01 23:00] VITALS: BP 127/68
[2021-12-01 23:15] VITALS: BP 117/51
[2021-12-01 23:30] VITALS: BP 105/42
[2021-12-01 23:45] VITALS: BP 108/61
[2021-12-02 00:30] VITALS: BP 112/56
[2021-12-02 00:45] VITALS: BP 109/53
[2021-12-02 01:00] VITALS: BP 110/62
[2021-12-02 01:15] VITALS: BP 110/66
--- NOTE | 2021-12-02 01:52 | RAD ---
EXAM: ULTRASOUND PELVIS INDICATION: dysfunctional bleeding. Last menstrual period was 11/06/2021. COMPARISON: None available. TECHNIQUE: Transvaginal sonography was performed. FINDINGS: The uterus measures 11.0 x 7.5 x 6.9 cm. The endometrium is complex in echotexture and measures 1.5 cm. There is no focal myometrial abnormality The right ovary was not visualized. The left ovary measures 2.9 x 2.3 x 1.9 cm. Normal vascularity. There is no free fluid. IMPRESSION: 1. Thickened endometrium with complex echotexture, within normal limits for a premenopausal patient. Correlate with stage of patient's cycle. 2. Physiologic appearance of the left ovary. Right ovary not visualized. Electronically signed by: Ron Morel MD (12/02/2021 1:50 AM) [facility]
[2021-12-02 02:10] VITALS: BP 110/66
[2021-12-04 20:07] LABS: CHLAMYDIA PROBE Negative (Negative)
== END 2021-12-02 02:15 | disposition home or self-care (01) ==
LOC: ER 18:11
DX: D64.9 Anemia, unspecified (principal); N93.8 Other specified abnormal uterine and vaginal bleeding; F17.210 Nicotine dependence, cigarettes, uncomplicated; Z86.2 Personal history of diseases of the blood and blood-forming organs and certain disorders involving the immune mechanism; Z90.89 Acquired absence of other organs; Z88.8 Allergy status to other drugs, medicaments and biological substances
CPT/HCPCS: 36415; 36430; 76830; 76856; 80048; 80076; 80307; 81001; 81025; 83690; 84702; 85025; 85045; 85610; 85730; 86850; 86900; 86901; 86920; 87491; 87591; 96374; 96375; 99285; J1200; J1410; J7120; P9016